=== PATIENT | female | born 1970 | race Caucasian/White ===

== ENCOUNTER 2022-07-18 07:29 | Outpatient (CLI) | payer OTHER, SELFPAY ==
[2022-07-18 07:52] LABS: Basophils Percent Auto 0.4 % (0.2-1.2); Eosinophils Absolute Auto 0.1 K/mm3 (0-0.3); Hematocrit 39.7 % (37.0-47.0); Hemoglobin 13.6 g/dL (12.0-15.0); Immature Granulocyte Absolute 0.01 K/mm3 (0.00-0.031); Immature Granulocyte Percent A 0.2 % (0-0.5); Lymphocytes Absolute Auto 1.29 K/mm3 (0.9-3.2); Lymphocytes Percent Auto 25.7 % (18.3-44.2); Mean Corpuscular HGB Conc 34.3 g/dl (32-36); Mean Corpuscular Hemoglobin 30.4 pg (26-34); Mean Corpuscular Volume 88.6 fl (80-100); Monocytes Absolute Auto 0.5 K/mm3 (0.1-0.6); Neutrophils Absolute Auto 3.2 K/mm3 (1.3-6.7); Neutrophils Percent Auto 62.7 % (45.5-73.1); Platelet Count Result 196 k/mm3 (150-375); Red Blood Count 4.48 M/mm3 (4.2-5.4)
[2022-07-18 08:06] LABS: Alanine Aminotransferase 15 U/L (6-35); Alkaline Phosphatase 41 U/L (38-126); Anion Gap 2 mmol/L (8-16); Aspartate Amino Transferase 21 U/L (14-36); Bilirubin,Total 0.6 mg/dL (0.2-1.3); Blood Urea Nitrogen 11 mg/dL (7-17); Calcium 8.5 mg/dL (8.4-10.2); Carbon Dioxide 27 mmol/L (22-30); Chloride 109 mmol/L (98-107); Cholesterol 138 mg/dL (0-200); Estimated Glomerular Filt Rate > 60; Glucose 89 mg/dL (65-110); HDL Direct 55 mg/dL; Potassium 4.4 mmol/L (3.4-5.0); Sodium 138 mmol/L (137-145); Triglycerides 53 mg/dL (<150)
[2022-07-18 08:17] LABS: LDL Cholesterol Direct 56 mg/dL
[2022-07-18 08:24] LABS: Hemoglobin A1C 4.6 % (<5.7)
== END 2022-07-18 07:30 | disposition home or self-care (01) ==
PROVIDERS: PCP Family Medicine; Visit Provider Physician Assistant
DX: K50.90 Crohn's disease, unspecified, without complications (principal); E66.3 Overweight; Z86.39 Personal history of other endocrine, nutritional and metabolic disease
CPT/HCPCS: 36415; 80053; 80061; 83036; 84443; 85025

== ENCOUNTER 2024-03-29 07:40 | Outpatient (CLI) | payer OTHER, SELFPAY ==
[2024-03-29 08:24] LABS: Basophils Percent Auto 0.9 % (0.2-1.2); Eosinophils Absolute Auto 0.1 K/mm3 (0-0.3); Eosinophils Percent Auto 1.7 % (0-4.4); Hematocrit 38.6 % (37.0-47.0); Hemoglobin 13.2 g/dL (12.0-15.0); Immature Granulocyte Absolute 0.01 K/mm3 (0.00-0.031); Immature Granulocyte Percent A 0.3 % (0-0.5); Lymphocytes Absolute Auto 1.21 K/mm3 (0.9-3.2); Lymphocytes Percent Auto 34.4 % (18.3-44.2); Mean Corpuscular HGB Conc 34.2 g/dl (32-36); Mean Corpuscular Hemoglobin 30.6 pg (26-34); Mean Corpuscular Volume 89.6 fl (80-100); Mean Platelet Volume 10.6 fl (7.4-10.4); Monocytes Absolute Auto 0.3 K/mm3 (0.1-0.6); Monocytes Percent Auto 8.5 % (2.6-8.5); Neutrophils Absolute Auto 1.9 K/mm3 (1.3-6.7); Neutrophils Percent Auto 54.2 % (45.5-73.1); Platelet Count Result 179 k/mm3 (150-375); Red Blood Count 4.31 M/mm3 (4.2-5.4); White Blood Count 3.5 K/mm3 (4.5-10.0)
[2024-03-29 08:32] LABS: Hemoglobin A1C 4.7 % (<5.7)
[2024-03-29 08:34] LABS: Alanine Aminotransferase 13 U/L (6-35); Alkaline Phosphatase 39 U/L (38-126); Anion Gap 6 mmol/L (4-12); Aspartate Amino Transferase 26 U/L (14-36); Bilirubin,Total 0.8 mg/dL (0.2-1.3); Blood Urea Nitrogen 10 mg/dL (7-17); Calcium 8.8 mg/dL (8.4-10.2); Carbon Dioxide 27 mmol/L (22-30); Chloride 104 mmol/L (98-107); Cholesterol 143 mg/dL (0-200); Estimated Glomerular Filt Rate > 60; Glucose 82 mg/dL (65-110); HDL Direct 67 mg/dL; Potassium 3.7 mmol/L (3.4-5.0); Sodium 137 mmol/L (137-145); Triglycerides 39 mg/dL (<150)
[2024-03-29 08:45] LABS: LDL Cholesterol Direct 53 mg/dL
[2024-03-29 09:05] LABS: Thyroid Stimulating Hormone 0.923 uIU/mL (0.465-4.680)
== END 2024-03-29 07:41 | disposition home or self-care (01) ==
PROVIDERS: PCP Family Medicine; Visit Provider Family Medicine
DX: Z00.00 Encounter for general adult medical examination without abnormal findings (principal); E66.3 Overweight
CPT/HCPCS: 36415; 80053; 80061; 83036; 84443; 85025

== ENCOUNTER 2024-12-13 03:08 | Day surgery (SDC) | payer OTHER, SELFPAY ==
[2024-12-03 08:49] VITALS: BMI 23.1
--- NOTE | 2024-12-03 08:49 | SUR.PREOP ---
Report to the Outpatient Waiting Room, entrance under the green pavilion located off [facility], at time 6:00a.m. on date 12/13/2024. Planned Procedure Time: 7:30a.m.? Time changes happen often and if your time is changed the preop area will call you the afternoon before. - You and your visitor will be asked to self-screen and do not enter if you have any COVID symptoms. Please call surgeon if you need to reschedule. - A mask is optional within the hospital at this time. Patients may have clear liquids (water, carbonated beverages, clear teas, apple juice) until 3 hours prior to surgery with a maximum of 20 ounces. - No food from midnight until time of surgery and no smoking, or chewing tobacco (or any form of nicotine). No chewing gum, candy or mints. Take only the following medications with a SIP of water on the morning of surgery: progesterone DO NOT STOP ANY OF YOUR OTHER PRESCRIPTION MEDICATIONS PRIOR TO SURGERY EXCEPT THE FOLLOWING Hold all vitamins and supplements for 3 days per anesthesiologist. Medications to discontinue per physician Afua Date to take last dose 12/03/2024 Please no make-up, nail welsh, hairspray, perfume, deodorant, or body powder the day of surgery.? No jewelry (including any body piercings) or valuables the day of surgery, leave them at home.? Please take a shower or bath the night before, or the morning of, surgery with an antibacterial soap.? Wear comfortable, loose fitting clothing.? Children are encouraged to wear pajamas. - Jewelry must be removed prior to entering the operating room.? Rings and piercings that are not removed may be cut off. - The hospital will not accept responsibility for valuables.? - Please leave all valuables, including medications, at home the day of surgery. If you are going home after surgery, a licensed fork truck driver must drive you home.? - NO public transportation without another adult if you receive anesthesia. - We recommend that an adult stay with you for 24 hours following discharge. - We also recommend that you do not drive, make important decision, drink alcoholic beverages, or take any drugs that were not prescribed by your health care provider for at least 24 hours after your discharge time. Follow any additional instructions given to you from your surgeon. Telephone instructions given to Emma Hinton and asked if any additional questions and then verbalized understanding. Patient advised to call surgeon office or pre surgery nurse liaison [phone] if any additional questions.
--- NOTE | 2024-12-08 08:45 | PM.IMHP ---
H&P: HPI History of Present Illness Date/Time: 12/08/24 08:45 Chief Complaint: Mixed UI Narrative: ON a Beta 3 for OAB. Desires surgical correction of VIRGIL Review of Systems Review of Systems: All systems reviewed & are unremarkable except as noted in HPI and below PMFSH Family History Family History Father Diabetes mellitus Social History Social History Smoking status: Never smoker Alcohol intake: current Drinks per week: 1 Alcohol use details: Rare Substance use type: does not use Lack of Transportation: No Lack of Food: Never True Current Housing: I Have Housing Concerned About Future Housing: No Difficulty Paying Gas/Electric Bills: No Difficulty Paying for Meds: No Currently Unemployed: No Education: Master's Degree or Higher Difficulty w/ Childcare or Family Care: No Living arrangements: with family Spiritual care concerns: No Meds Home Medications and Allergies Home Medications ?Medication ?Instructions ?Recorded ?Confirmed ?Type valacyclovir 1 gram tablet See Rx Instructions PO .COMPLEX 10/23/23 12/03/24 Rx #30 tabs Mounjaro 10 mg/0.5 mL subcutaneous 10 mg (0.5 mL) subcut WEEKLY #2 mL 11/25/24 12/03/24 Rx pen injector (tirzepatide) estradiol 0.05 mg/24 hr semiweekly 1 patch transdermal .twice a week 12/03/24 12/03/24 History transdermal patch progesterone micronized 100 mg 100 mg PO DAILY 12/03/24 12/03/24 History capsule solifenacin 5 mg tablet 5 mg PO DAILY 12/03/24 12/03/24 History Allergies Allergy/AdvReac Type Severity Reaction Status Date / Time Penicillins Allergy Unknown Skin Verified 12/03/24 08:31 Reaction Exam Narrative: + urethral hypermobility Assessment and Plan Assessment and plan (1) VIRGIL (stress urinary incontinence, female): Code(s): N39.3 - Stress incontinence (female) (male) Status: Acute Assessment and Plan: Urethral sling. Risks, bennifits and alternatives outlined in office chart. Still will likely need meds for OAB
--- OUTSIDE RECORDS SUMMARY | 2024-12-13 03:11 | XMS_ITS | Encounter Summary ---
Author Organization Richard Pauer - [facility] Address [address] [place] [address] Care Team Providers Care Gluer And Slicer Hand Name Role Phone Ayse Schmidt MD Primary Care Provider [phone] Encounter Details Date Type Department Care Team (Latest Contact Info) Description 06/02/2005 Outpatient Historical [facility] RUDY Azul, Henry Julio MD [address] [place] [address] REGIONAL ENTERITIS NOS (CMS/HCC) (Primary Dx) Social History Tobacco Use Types Packs/Day Years Used Date Smoking Tobacco: Never Assessed Comments Unknown Sex and Gender Information Value Date Recorded Sex Assigned at Not on file Legal Sex Female 5:10 AM ACCESS REPRESENTATIVE Gender Identity Not on file Sexual Orientation Not on file documented as of this encounter Plan of Treatment Not on file documented as of this encounter Procedures Procedure Name Priority Date/Time Associated Diagnosis Comments CBC WITH DIFFERENTIAL Routine 06/02/2005 4:51 PM ACCESS REPRESENTATIVE CBC WITH DIFFERENTIAL Routine 06/02/2005 4:51 PM ACCESS REPRESENTATIVE C-REACTIVE PROTEIN Routine 06/02/2005 4: 51 PM ACCESS REPRESENTATIVE VITAMIN B12 LEVEL Routine 06/02/2005 4:5 1 PM ACCESS REPRESENTATIVE COMPREHENSIVE METABOLIC PANEL Routine 06/02/2005 4:51 PM ACCESS REPRESENTATIVE documented in this encounter Results * CBC WITH DIFFERENTIAL (06/02/2005 4:51 PM ACCESS REPRESENTATIVE) NEUTROPHILS 66 45 - 70 % INTERFAC E SYSTEM LYMPHOCYTES 28 16 - 45 % INTERFAC E SYSTEM MONOCYTES 5 3 - 13 % INTERFACE SYSTEM EOSINOPHILS 2 0 - 7 % INTERFAC E SYSTEM BASOPHILS 0 0 - 2 % INTERFACE SYSTEM NEUTROPHIL ABSOLUTE 4.16 1.90 - 7.00 K/uL INTERFACE SYSTEM LYMPHOCYTE ABSOLUTE 1.76 0.70 - 4.50 K/uL INTERFACE SYSTEM MONOCYTE ABSOLUTE 0.29 0.10 - 1.30 K/uL INTERFACE SYSTEM EOSINOPHIL ABSOLUTE 0.11 0.00 - 0.70 K/uL INTERFACE SYSTEM BASOPHILS ABSOLUTE 0.02 0.00 - 0.20 K/uL INTERFACE SYSTEM 06/02/2005 4:51 PM ACCESS REPRESENTATIVE Henry Azul MD HEMATOLOGY ORDERABLES F inal Result Performing Organization Address [facility] de Phone Number INTERFACE SYSTEM Refer to clinic/hospital department * CBC WITH DIFFERENTIAL (06/02/2005 4:51 PM ACCESS REPRESENTATIVE) Pathologist [facility] WBC 6.3 4.0 - 9.8 K/uL INTERFACE SYSTEM RBC 4.48 3.90 - 4.90 M/uL INTERFACE SYSTEM HEMOGLOBIN 13.3 11.8 - 14.8 g/dL INTERFACE SYSTEM HEMATOCRIT 39.2 35.5 - 44.0 % INTERFACE SYSTEM MCV 87.5 82.0 - 99.0 fL INTERFACE SYSTEM MCH 29.7 27.2 - 32.6 pg INTERFACE SYSTEM MCHC 33.9 31.5 - 35.5 % INTERFACE SYSTEM RDW 12.9 11.5 - 14.5 % INTERFACE SYSTEM RDW-STDEV 41.7 37.1 - 48.7 fL INTERFACE SYSTEM PLATELETS 208 140 - 350 K/uL INTERFACE SYSTEM MPV 11.1 9.3 - 12.4 fL INTERFACE SYSTEM 06/02/2005 4:51 PM ACCESS REPRESENTATIVE Henry Azul MD HEMATOLOGY ORDERABLES F inal Result Performing Organization Address [facility] Co de Phone Number INTERFACE SYSTEM Refer to clinic/hospital department * VITAMIN B12 (06/02/2005 4:51 PM ACCESS REPRESENTATIVE) Pathologist [facility] VITAMIN B12 360 243 - 894 pg/mL INTERFACE SYSTEM Comment: It has been reported that between 5 to 10% of patients with values between 200 and 400 pg/mL may experience neuropsychiatric and hematologic abnormalities due to occult B12 deficiency. Less than 1% of patients with values above 400 pg/mL will have symptoms. 06/02/2005 4:51 PM ACCESS REPRESENTATIVE Henry Azul MD CHEMISTRY ORDERABLES Fi nal Result Performing Organization Address [facility] Phone Number INTERFACE SYSTEM Refer to clinic/hospital department * C-REACTIVE PROTEIN (06/02/2005 4:51 PM ACCESS REPRESENTATIVE) CRP <0.5 0.0 - 0.8 mg/dL INTERFACE SYSTEM 06/02/2005 4:51 PM ACCESS REPRESENTATIVE Henry Azul MD CHEMISTRY ORDERABLES Fi nal Result Performing Organization Address [facility] Phone Number INTERFACE SYSTEM Refer to clinic/hospital department * COMPREHENSIVE METABOLIC PANEL (06/02/2005 4:51 PM ACCESS REPRESENTATIVE) GLUCOSE 87 65 - 109 mg/dL INTERFACE SYSTEM CREATININE 0.9 0.4 - 1.2 mg/dL INTERFACE SYSTEM CALCIUM 9.0 8.6 - 10.2 mg/dL INTERFACE SYSTEM AST 22 12 - 32 U/L INTERFACE SYSTEM ALKALINE PHOSPHATASE 55 35 - 104 U/L INTERFACE SYSTEM BILIRUBIN TOTAL 0.5 0.2 - 1.0 mg/dL INTERFACE SYSTEM ALBUMIN 4.4 3.4 - 4.8 g/dL INTERFACE SYSTEM TOTAL PROTEIN 7.4 6.3 - 8.6 g/dL INTERFACE SYSTEM ALT 22 0 - 31 U/L INTERFACE SYSTEM BUN 13 6 - 20 mg/dL INTERFACE SYSTEM SODIUM 141 135 - 145 mmol/L INTERFACE SYSTEM POTASSIUM 3.9 3.5 - 4.9 mmol/L INTERFACE SYSTEM CHLORIDE 108 96 - 108 mmol/L INTERFACE SYSTEM CO2 24 22 - 30 mmol/L INTERFACE SYSTEM 06/02/2005 4:51 PM ACCESS REPRESENTATIVE Henry Azul MD CHEMISTRY ORDERABLES Fi nal Result Performing Organization Address [facility] Phone Number INTERFACE SYSTEM Refer to clinic/hospital department documented in this encounter Visit Diagnoses Diagnosis Regional enteritis of unspecified site (CMS/HCC)- Primary Regional enteritis of unspecified site documented in this encounter Care Teams Gluer And Slicer Hand Relationship Specialty Start Date End Date Ayse Schmidt MD PCP - General Family Practice 09/22/15 documented as of this encounter
--- OUTSIDE RECORDS SUMMARY | 2024-12-13 03:11 | XMS_ITS | Clinical Summary ---
Author Organization [address] Address [address] [place] [address] Care Team Providers Care Interpreter Translator Name Role Phone Ayse Schmidt MD Primary Care Provider + Angel Nelson MD Unavailable [phone] Allergies Active Allergy Reactions Criticality Noted Date Comments Penicillin G Rash Medium 06/19/2009 Medications No known medications Active Problems No known active problems Social History Tobacco Use Types Packs/Day Years Used Date Smoking Tobacco: Never Smokeless Tobacco: Never Personal Safety Answer Date Recorded Getting School Help Needed Not on file 07/22 Comments Unknown Sex and Gender Information Value Date Recorded Sex Assigned at Not on file Legal Sex Female 11:31 AM CDT Gender Identity Not on file Sexual Orientation Not on file Obstetrics History Last Filed Vital Signs Vital Sign Reading Time Taken Comments Blood Pressure - - Pulse - - Temperature 36.2 C (97.1 F) 02/21/2020 10:47 AM CDT Respiratory Rate - - Oxygen Saturation - - Inhaled Oxygen Concentration - - Weight 90.7 kg (200 lb) 02/21/2020 10:47 AM CDT Height 165.1 cm (5' 5) 02/21/2020 10:47 AM CDT Body Mass Index 33.28 02/21/2020 10:47 AM CDT Plan of Treatment Not on file Insurance [employer] SIG [id number] Care Teams Interpreter Translator Relationship Specialty Start Date End Date Ayse Schmidt MD PCP - General Family Medicine 02/18/20 Angel Nelson MD [address] [address] Surgeon Orthopedic Surgery 02/19/20
--- OUTSIDE RECORDS SUMMARY | 2024-12-13 03:11 | XMS_ITS | Encounter Summary ---
Author Organization [facility] Address [address] [place] [address] Care Team Providers Care Rougher Merchant Mill Name Role Phone Ayse Schmidt MD Primary Care Provider [phone] Encounter Details Date Type Department Care Team (Latest Contact Info) Description 09/03/2007 Outpatient Historical [facility] Friedman, Henry Nunez MD [address] [place] [address] Other Screening Mammogram Social History Tobacco Use Types Packs/Day Years Used Date Smoking Tobacco: Never Assessed Comments Unknown Sex and Gender Information Value Date Recorded Sex Assigned at Not on file Legal Sex Female 5:10 AM BINDERY TECHNICIAN Gender Identity Not on file Sexual Orientation Not on file documented as of this encounter Plan of Treatment Not on file documented as of this encounter Procedures Procedure Name Priority Date/Time Associated Diagnosis Comments MAMMO SCREEN BILAT W OR WO CAD Routine 09/03/2007 1:23 PM CDT documented in this encounter Results * MAMMO DIGITAL SCREEN BILAT (09/03/2007 1:23 PM CDT) Anatomical Region Laterality Modality Breast Bilateral Other 09/03/2007 1:23 PM CDT Narrative 09/05/2007 8:42 AM CDT [address] [address] Admit Date: 09/03/2007 VENICE RODRIGUEZ Sex: F Admit Prov: HENRY FRIEDMAN Date: 1970 Primary Care Prov: CMRN: [id number] Room: [facility] N: [id number] IMAGING SERVICES Ordering Prov: HENRY FRIEDMAN Accession Number: [id number] Interpretation BILATERAL FULL FIELD DIGITAL SCREENING MAMMOGRAM WITH CAD. Date: 09/03/2007 History: Routine Screening. Technique: Full field digital craniocaudal and mediolateral oblique projections of both breasts were obtained. Computer aided diagnosis was performed. Comparison: No prior studies are available for comparison. Breast Parenchymal Composition: Scattered fibroglandular densities. Findings: No suspicious mass, suspicious microcalcifications, or architectural distortion in either breast is identified. The computer aided detection detects no significant abnormality. Overall Assessment: BI-RADS category 1: Negative. Recommendation: Annual mammography is recommended. Assessment BIRADS: 1-Negative Recommendation: Normal interval follow-up Dictated by: IMANI CRUZ Electronically signed by: IMANI CRUZ 09/05/2007 08:42 Transcribed: 09/04/2007 23:41 AMK Procedure Note Imani Cruz - 09/05/2007 [facility] [address] [place], [place] [address] Admit Date: 09/03/2007 VENICE RODRIGUEZ Sex: F Admit Prov: HENRY FRIEDMAN Date: 1970 Primary Care Prov: CMRN: [id number] Room: [facility] N: [id number] IMAGING SERVICES Ordering Prov: HENRY FRIEDMAN Interpretation BILATERAL FULL FIELD DIGITAL SCREENING MAMMOGRAM WITH CAD. Date: 09/03/2007 History: Routine Screening. Technique: Full field digital craniocaudal and mediolateral oblique projections of both breasts were obtained. Computer aided diagnosiswas performed. Comparison: No prior studies are available for comparison. Breast Parenchymal Composition: Scattered fibroglandulardensities. Findings: No suspicious mass, suspicious microcalcifications, or architectural distortion in either breast is identified. The computeraided detection detects no significant abnormality. Overall Assessment: BI-RADS category 1: Negative. Recommendation: Annual mammography is recommended. Assessment BIRADS: 1-Negative Recommendation: Normal interval follow-up Dictated by: IMANI CRUZ Electronically signed by: IMANI CRUZ 09/05/2007 08:42 Transcribed: 09/04/2007 23:41 AMK us Henry Friedman MD MAMMO ORDERABLES Final Resul t documented in this encounter Visit Diagnoses Diagnosis Other screening mammogram documented in this encounter Care Teams Rougher Merchant Mill Relationship Specialty Start Date End Date Ayse Schmidt MD PCP - General Family Practice 09/22/15 documented as of this encounter
--- OUTSIDE RECORDS SUMMARY | 2024-12-13 03:11 | XMS_ITS | Encounter Summary ---
Author Organization [employer] Address [address] [place] [address] Care Team Providers Care Project Mgr Name Role Phone Ayse Schmidt MD Primary Care Provider [phone] Encounter Details Date Type Department Care Team (Latest Contact Info) Description 03/07/2006 Inpatient Historical [facility] Henry Friedman MD [address] [place] [address] Abnormality in Heart Rate/Rhythm, Delivered (Primary Dx) Social History Tobacco Use Types Packs/Day Years Used Date Smoking Tobacco: Never Assessed Comments Unknown Sex and Gender Information Value Date Recorded Sex Assigned at Not on file Legal Sex Female 5:10 AM REMOTE SENSING ADVISOR Gender Identity Not on file Sexual Orientation Not on file documented as of this encounter Plan of Treatment Not on file documented as of this encounter Procedures Procedure Name Priority Date/Time Associated Diagnosis Comments CBC WITH DIFFERENTIAL Routine 03/08/2006 2:25 AM REMOTE SENSING ADVISOR CBC WITH DIFFERENTIAL Routine 03/08/2006 2:25 AM REMOTE SENSING ADVISOR documented in this encounter Results * (ABNORMAL) CBC WITH DIFFERENTIAL (03/08/2006 2:25 AM REMOTE SENSING ADVISOR) NEUTROPHILS 77(H) 45 - 70 % INTERFAC E SYSTEM LYMPHOCYTES 17 16 - 45 % INTERFAC E SYSTEM MONOCYTES 6 3 - 13 % INTERFACE SYSTEM EOSINOPHILS 0 0 - 7 % INTERFAC E SYSTEM BASOPHILS 0 0 - 2 % INTERFACE SYSTEM NEUTROPHIL ABSOLUTE 8.31(H) 1.90 - 7.00 K/uL INTERFACE SYSTEM LYMPHOCYTE ABSOLUTE 1.80 0.70 - 4.50 K/uL INTERFACE SYSTEM MONOCYTE ABSOLUTE 0.67 0.10 - 1.30 K/uL INTERFACE SYSTEM EOSINOPHIL ABSOLUTE 0.04 0.00 - 0.70 K/uL INTERFACE SYSTEM BASOPHILS ABSOLUTE 0.01 0.00 - 0.20 K/uL INTERFACE SYSTEM 03/08/2006 2:25 AM REMOTE SENSING ADVISOR us Henry Friedman MD HEMATOLOGY ORDERABLES Final Result INTERFACE SYSTEM Refer to clinic/hospital department * (ABNORMAL) CBC WITH DIFFERENTIAL (03/08/2006 2:25 AM REMOTE SENSING ADVISOR) WBC 10.8(H) 4.0 - 9.8 K/uL INTERFACE SYSTEM RBC 3.94 3.90 - 4.90 M/uL INTERFACE SYSTEM HEMOGLOBIN 11.7(L) 11.8 - 14.8 g/dL INTERFACE SYSTEM HEMATOCRIT 34.0(L) 35.5 - 44.0 % INTERFACE SYSTEM MCV 86.3 82.0 - 99.0 fL INTERFACE SYSTEM MCH 29.7 27.2 - 32.6 pg INTERFACE SYSTEM MCHC 34.4 31.5 - 35.5 % INTERFACE SYSTEM RDW 13.5 11.5 - 14.5 % INTERFACE SYSTEM RDW-STDEV 43.3 37.1 - 48.7 fL INTERFACE SYSTEM PLATELETS 129(L) 140 - 350 K/uL INTERFACE SYSTEM MPV 11.7 9.3 - 12.4 fL INTERFACE SYSTEM 03/08/2006 2:25 AM REMOTE SENSING ADVISOR us Henry Friedman MD HEMATOLOGY ORDERABLES Final Result INTERFACE SYSTEM Refer to clinic/hospital department documented in this encounter Visit Diagnoses Diagnosis Abnormality in heart rate/rhythm, delivered, with or without mention of antepartum condition- Primary documented in this encounter Care Teams Project Mgr Relationship Specialty Start Date End Date Ayse Schmidt MD PCP - General Family Practice 09/22/15 documented as of this encounter
--- OUTSIDE RECORDS SUMMARY | 2024-12-13 03:11 | XMS_ITS | Encounter Summary ---
Author Organization [facility] Address [address] [place] [address] Care Team Providers Care Field Insurance Sales Manager Name Role Phone Ayse Schmidt MD Primary Care Provider [phone] Encounter Details Date Type Department Care Team (Latest Contact Info) Description 02/06/2008 Outpatient Historical [facility] Henry Carey MD [address] [place] [address] Regional Enteritis of Unspecified Site (CMS/HCC) Social History Tobacco Use Types Packs/Day Years Used Date Smoking Tobacco: Never Assessed Comments Unknown Sex and Gender Information Value Date Recorded Sex Assigned at Not on file Legal Sex Female 5:10 AM ROOFER ASSISTANT Gender Identity Not on file Sexual Orientation Not on file documented as of this encounter Plan of Treatment Not on file documented as of this encounter Procedures Procedure Name Priority Date/Time Associated Diagnosis Comments CT ABDOMEN PELVIS W CONTRAST Timed Study 02/06/2008 9:28 AM CDT HCG QUALITATIVE, URINE Routine 02/06/2008 8:04 AM CDT documented in this encounter Results * CT ABDOMEN PELVIS W CONTRAST (02/06/2008 9:28 AM CDT) Anatomical Region Laterality Modality Abdomen Other 02/06/2008 9:28 AM CDT Narrative 02/06/2008 10:34 AM CDT [facility] [address] [place], [place] [address] Admit Date: 02/06/2008 VENICE RODRIGUEZ Sex: F Admit Prov: HENRY CAREY Date: 1970 Primary Care Prov: CMRN: [id number] [id number] IM[facility]ING SERVICES Ordering Prov: N/A Accession Number: [id number] Interpretation Exam: CT of the abdomen and pelvis. History: Pain, history of Crohn's. Scans were performed during the intravenous injection of 125 cc Optiray- 320. The liver is free of distinct solid masses or evidence of hepatocellular disease. No abnormalities of bile ducts are seen. The gallbladder is normal. The spleen is unremarkable. No pancreatic masses cyst or inflammation are identified. No renal cyst are seen. No renal stones are seen. No renal masses or obstruction is seen. The ureters descend without evidence of obstruction or displacement. The urinary bladder is grossly normal. No pelvic masses, cysts or abnormal fluid collections are seen. No periaortic or pelvic adenopathy is seen. A normal appendix is not identified but no right lower quadrant inflammatory changes are seen. No abnormalities of bowel loop and mesentery are identified. Conclusion: No convincing radiographic evidence of acute or active intra- abdominal or pelvic disease. . Dictated by: JJ BELTRE 02/06/2008 10:28 Electronically signed by: JJ BELTRE 02/06/2008 10:32 Procedure Note Jj Beltre MD - 02/06/[address] [address] Admit Date: 02/06/2008 RODRIGUEZVENICE DUGAN Aleyda Sex: F Admit Prov: HENRY CAREY Date: 1970 Primary Care Prov: CMRN: [id number] [facility] [id number] IMAGING SERVICES Ordering Prov: N/A Interpretation Exam: CT of the abdomen and pelvis. History: Pain, history of Crohn's. Scans were performed during the intravenous injection of 125 ccOptiray- 320. The liver is free of distinct solid masses or evidence of hepatocellular disease. No abnormalities of bile ducts are seen.The gallbladder is normal. The spleen is unremarkable. No pancreaticmasses cyst or inflammation are identified. No renal cyst are seen. Norenal stones are seen. No renal masses or obstruction is seen. Theureters descend without evidence of obstruction or displacement. Theurinary bladder is grossly normal. No pelvic masses, cysts or abnormalfluid collections are seen. No periaortic or pelvic adenopathy is seen. Anormal appendix is not identified but no right lower quadrant inflammatorychanges are seen. No abnormalities of bowel loop and mesentery areidentified. Conclusion: No convincing radiographic evidence of acute or activeintra- abdominal or pelvic disease. . Dictated by: JJ BELTRE 02/06/2008 10:28 Electronically signed by: JJ BELTRE 02/06/2008 10:[address] ORDERABLES Final R esult * HCG QUALITATIVE, URINE (02/06/2008 8:04 AM CDT) SPECIFIC GRAVITY UA 1.025 1.001 - 1.035 [facility] HCG QUAL URINE Negative Negative [facility] Urine specimen (specimen) 02/06/2008 8:04 AM CDT 02/06/2008 8:15 AM CDT Henry Carey MD URINE ORDERABLES Final Result INTERFACE SYSTEM Refer to clinic/hospital department [facility] CLIA# [id number] [address] [place] [address] documented in this encounter Visit Diagnoses Diagnosis Regional enteritis of unspecified site (CMS/HCC) Regional enteritis of unspecified site documented in this encounter Care Teams Field Insurance Sales Manager Relationship Specialty Start Date End Date Ayse Schmidt MD PCP - General Family Practice 09/22/15 documented as of this encounter
--- OUTSIDE RECORDS SUMMARY | 2024-12-13 03:11 | XMS_ITS | Encounter Summary ---
Author Organization [facility] Address [address] [place] [address] Care Team Providers Care Sweet Pickle Maker Name Role Phone Ayse Schmidt MD Primary Care Provider [phone] Encounter Details Date Type Department Care Team (Late st Contact Info) Description 09/26/2019 Abstract [facility] Operating Room [address] [id number] Luis Tomas MD [address] [place] [address] Social History Tobacco Use Types Packs/Day Years Used Date Smoking Tobacco: Never Alcohol Use Standard Drinks/Week Comments Yes 0 (1 standard drink = 0.6 oz pur e alcohol) social Comments Unknown Sex and Gender Information Value Date Recorded Sex Assigned at Not on file Legal Sex Female 5:10 AM WOOL SAMPLER Gender Identity Not on file Sexual Orientation Not on file Occupation Industry Job Start Date Job End Date Not on file Not on file Not on file Not on file documented as of this encounter Plan of Treatment Not on file documented as of this encounter Visit Diagnoses Not on filedocumented in this encounter Care Teams Sweet Pickle Maker Relationship Specialty Start Date End Date Ayse Schmidt MD PCP - General Family Practice 09/22/15 documented as of this encounter
--- OUTSIDE RECORDS SUMMARY | 2024-12-13 03:11 | XMS_ITS ---
Author Organization Unknown ENCOUNTERS Encounter Performer Location Date Diagnosis Diagnosis Status Outpatient [facility]se [facility] [address] [place] [address] [id number] [place]BI[place] Outpatient [facility] [address] [place] [address] [id number] [place] *Note: Encounters from your own facility or health system may be excluded. Allergies, Adverse Reactions, Alerts Allergen Type Severity Identification Date Penicillins drug allergy 3 [id number] Medications Name Date Quantity Days Supplied GPI Number
--- OUTSIDE RECORDS SUMMARY | 2024-12-13 03:11 | XMS_ITS | Clinical Summary ---
Author Organization [facility] Address [address] [place] [address] Phone Care Team Providers Care Inner Tube Cutter Name Role Phone Ayse Schmidt MD Primary Care Provider Allergies Active Allergy Reactions Criticality Noted Date Comments Penicillin G Rash Low 06/19/2009 Medications valACYclovir (VALTREX) 1 gram tablet TAKE 2 TABLETS BY MOUTH AT ONSET OF SYMPTOMS THEN 2 TABLETS EVERY 12 HOURS FOR 1 DAY 1 Active Mounjaro 10 mg/0.5 mL Pen Injector INJECT 10MG SUBCUTANEOUSLY ONCE WEEKLY 4 Active estradioL (Vivelle-Dot) 0.05 mg/24 hr patch Apply 1 Patch to skin as directed twice weekly. 24 Patch 3 5 Active progesterone micronized (Prometrium) 100 mg Capsule Take 1 Capsule (100 mg) by mouth daily. 90 Capsule 3 5 Active Active Problems No known active problems Encounters Date Type Department Care Team Description 12/10/2024 External Device Data STL ABSTRACTION Provider, Abstract 11/20/2024 External Device Data ST[facility] ABSTRACTION Provider, Abstract 11/19/2024 External Device Data [facility] ABSTRACTION Provider, Abstract 10/22/2024 External Device Data ST[place] ABSTRACTION Provider, Abstract 09/26/2024 External Device Data ST[facility] ABSTRACTION Provider, Abstract 09/25/2024 External Device Data ST[place] ABSTRACTION Provider, Abstract 09/24/2024 External Device Data STL ABSTRACTION Provider, Abstract from Last 3 Months Immunizations Immunization Administration Dates Next Due INFLUENZA VACCINE QUADRIVALENT 6 MOS UP IM 03/16 Family History Medical History Relation Name Comments Diabetes Father Ovarian Cancer Maternal Aunt 30's Other Mother Breast Cancer Neg Hx Relation Name Status Comments Brother Alive Father Alive Maternal Aunt Mother Alive Social History Tobacco Use Types Packs/Day Years Used Date Smoking Tobacco: Never Smokeless Tobacco: Never Tobacco Cessation:Counseling Given: No Alcohol Use Standard Drinks/Week Comments Yes 0 (1 standard drink = 0.6 oz pur e alcohol) social Comments No Sex and Gender Information Value Date Recorded Sex Assigned at Not on file Legal Sex Female 5:10 AM SUPERVISOR PIPELINE Gender Identity Not on file Sexual Orientation Not on file Occupation Industry Job Start Date Job End Date Not on file Not on file Not on file Not on file Last Filed Vital Signs Vital Sign Reading Time Taken Comments Blood Pressure 112/74 05/23/2024 10:55 AM SUPERVISOR PIPELINE Pulse 74 06/23/2009 9:35 AM SUPERVISOR PIPELINE Temperature 36.9 C (98.4 F) 06/23/2009 9:20 AM SUPERVISOR PIPELINE Respiratory Rate 18 06/23/2009 9:35 AM SUPERVISOR PIPELINE Oxygen Saturation 100% 06/23/2009 9:35 AM SUPERVISOR PIPELINE Inhaled Oxygen Concentration - - Weight 65.3 kg (144 lb) 05/23/2024 10:55 AM SUPERVISOR PIPELINE Height 165.1 cm (5' 5) 05/23/2024 10:55 AM SUPERVISOR PIPELINE Body Mass Index 23.96 05/23/2024 10:55 AM SUPERVISOR PIPELINE Plan of Treatment Health Maintenance Due Date Last Done Comments DTAP/TDAP/TD VACCINES (1 - Tdap) 1990 HEPATITIS B VACCINES (1 of 3 - 19+ 3-dose series) 1990 FIT-DNA Q 3 years 2016 FIT/FOBT Q 1 year 2016 Flex Sig/CT Colonography Q 5 years 2016 ZOSTER VACCINE (1 of 2) 2021 INFLUENZA VACCINE (#1) 2024 03/16/2020 BREAST CANCER SCREENING 06/13/2025 06/13/19, 06/26/2023, 06/17/2020, Additional history exists COLORECTAL SCREENING 09/28/2025 09/29/2015, 06/23/19 10 Colorectal Cancer Screening 09/28/2025 PAP SMEAR 05/23/2027 05/23/2024, 05/0 05/2022, 04/08/2021, Additional history exists CERVICAL CANCER SCREENING 05/23/2029 HPV/Cotest (21-29) 05/23/2029 05/23/2024, 0 09/05/2022, 04/08/2021, Additional history exists HPV/Cotest (30-65) 05/23/2029 05/23/2024, 0 09/05/2022, 04/08/2021, Additional history exists Procedures Procedure Name Priority Date/Time Associated Diagnosis Comments MAMMO 3D HYUN SCREEN BILAT W OR WO CAD Routine 06/13/2024 10:49 AM SUPERVISOR PIPELINE Breast cancer screening by mammogram CERV/VAG CYTO AGE BASED SCREEN PAP Routine 05/23/2024 1:48 PM SUPERVISOR PIPELINE Screening for malignant neoplasm of cervix from Last 3 Months or Most Recently Relevant to Health Maintenance Results * MAMMO 3D HYUN SCREEN BILAT W OR WO CAD (06/13/2024 10:49 AM SUPERVISOR PIPELINE) Anatomical Region Laterality Modality Breast Bilateral Mammography 06/13/2024 10:4 9 AM SUPERVISOR PIPELINE Impressions 06/13/2024 1:14 PM SUPERVISOR PIPELINE IMPRESSION: Negative bilateral screening mammogram. Recommend routine followup. OVERALL FINAL ASSESSMENT: BI-RADS CATEGORY 1: Negative. DICTATION LOCATION: [facility] 06/13/2024 1:14 PM SUPERVISOR PIPELINE BILATERAL SCREENING DIGITAL MAMMOGRAM WITH 3D TOMOSYNTHESIS AND CAD DATE: 06/13/2024 10:49 AM HISTORY: Annual screening study. COMPARISON: 06/26/2023, 10/17/2017. TECHNIQUE: A bilateral screening mammogram was performed. Low-dose full-field digital breast tomosynthesis examination was performed with 2D and 3D acquisitions. Examination is read in conjunction with computer aided detection. BREAST COMPOSITION: Heterogeneously dense, which limits the sensitivity of mammography. FINDINGS: No new masses, suspicious calcifications, or areas of asymmetry or distortion are identified. The images were reviewed using the CAD system. us Henry Friedman MD MAMMO ORDERABLES Final Resul t * CERV/VAG CYTO AGE BASED SCREEN PAP (05/23/2024 1:48 PM SUPERVISOR PIPELINE) COMMENT (PAP): [facility] Comment: This order for age-based cervical cancer and STI screening follows ACOG guidelines(PB 168, 140, HTL410). See individual assays for performing site location. CLINICAL INFORMATION [facility] Comment:None given LAST MENSTRUAL PERIOD [facility] Comment:12/03/2023 PREV PAP: [facility] Comment:NONE GIVEN PREV BX: [facility] Comment:NONE GIVEN SOURCE [facility] Comment:Endocervix ADEQUACY: [facility] Comment: Satisfactory for evaluation. Endocervical/transformation zone component present. PAP INTERP [facility] Comment: Cytology Results: Negative for intraepithelial lesion or malignancy. COMMENT (PAP TEST) [facility] Comment: This Pap test has been evaluated with computer assisted technology. WEIGHT CONTROL LECTURER: [facility] Comment: YQ, CT(ASCP) CT screening location: [place] [address] [place] [address] EXPLANATORY NOTE [facility] Comment: EXPLANATORY NOTE: The Pap is a screening test for cervical cancer. It is not a diagnostic test and is subject to false negative and false positive results. It is most reliable when a satisfactory sample, regularly obtained, is submitted with relevant clinical findings and history, and when the Pap result is evaluated along with historic and current clinical information. HPV E6/E7 Not Detected Not Detected [facility] Comment: Methodology: Patent Prosecution Paralegal-Mediated Amplification This assay detects E6/E7 viral messenger RNA (mRNA) from 14 high-risk HPV types (16,18,31,33,35,39,45,51,52,56,58,59,66,68). Cervical sources are required for HPV testing. If a vaginal source from a patient who has had a total hysterectomy with removal of cervix was submitted, please contact the testing laboratory for alternative testing options. For additional information, please refer to http://education.[employer]/faq/VAT888k0 (This link if provided for information/ educational purposes only.) Test Performed at: [facility] [address] [place] [address] [facility] Genital SWAB OF ENDOCERVIX / Unknown 05/23/2024 1:48 PM SUPERVISOR PIPELINE 05/24/2024 3:23 AM SUPERVISOR PIPELINE Henry Friedman MD PATHOLOGY/CYTOLOGY ORDERABLE S Final Result [facility] [phone] [facility] [address] [place] [address] from Last 3 Months or Most Recently Relevant to Health Maintenance Insurance [facility] [employer] [id number] [employer] Address: [place] [id number] [place] [address] RX [facility] [employer] Advance Directives For more information, please contact: [phone] * Full Code (Latest Code Status on File) Date Activated Date Inactivated Comments 06/23/2009 7:50 AM 06/24/2009 2:02 AM Care Teams Inner Tube Cutter Relationship Specialty Start Date End Date Ayse Schmidt MD PCP - General Family Practice 09/22/15
[2024-12-13 06:30] VITALS: BP 107/64; PULSE 66; RESP 16; TEMP 36.6; O2SAT 100
[2024-12-13] MEDS: LACTATED RINGERS 1,000 ML 30 ML IV CONT ×2 (06:30→08:23)
--- NOTE | 2024-12-13 07:09 | P.PNAN_ITS ---
Anes - Initial Pre Proc Eval Procedure: Operation Date: 12/13/24 07:30 Proposed Procedures p Urethral Sling - Rodrick Quach MD Date/Time: 12/13/24 07:09 Surgeon: Rodrick Quach MD Pre Op Diagnosis: stress incont Patient Data Age: 54 Gender: F Height: 1.65 m Weight: 63 kg Allergies Allergy/AdvReac Type Severity Reaction Status Date / Time Penicillins Allergy Unknown Skin Verified 12/03/24 08:31 Reaction Home Medications ?Medication ?Instructions ?Recorded ?Confirmed ?Type valacyclovir 1 gram tablet See Rx Instructions PO .COMPLEX 10/23/23 12/03/24 Rx #30 tabs Mounjaro 10 mg/0.5 mL subcutaneous 10 mg (0.5 mL) subcut WEEKLY #2 mL 11/25/24 12/03/24 Rx pen injector (tirzepatide) estradiol 0.05 mg/24 hr semiweekly 1 patch transdermal .twice a week 12/03/24 12/03/24 History transdermal patch progesterone micronized 100 mg 100 mg PO DAILY 12/03/24 12/03/24 History capsule solifenacin 5 mg tablet 5 mg PO DAILY 12/03/24 12/03/24 History Patient hx anesthesia problems: none Family hx anesthesia problems: none Results Review: All pre-operative results and documents have been reviewed as part of the pre- operative evaluation. [facility] Past Medical History Medical History (Updated 12/13/24 @ 07:10 by Ag Martini DO) Crohn's disease Family History Family History Father Diabetes mellitus Social History Social History Smoking status: Never smoker Alcohol intake: current Substance use type: does not use Lack of Transportation: No Lack of Food: Never True Current Housing: I Have Housing Concerned About Future Housing: No Difficulty Paying Gas/Electric Bills: No Difficulty Paying for Meds: No Currently Unemployed: No Education: Master's Degree or Higher Difficulty w/ Childcare or Family Care: No Anes - Eval Final PreProcedure Day of Procedure 12/13/24 07:09 Patient weight: normal Heart: regular rate and rhythm Lungs: clear to auscultation and normal air movement Airway: Mallampati scale class 1 Neurological: alert and oriented Last oral intake: >/= 8 hours ASA classification: II Emergent: no Anesthetic plan: proceed Anesthesia type and monitoring: general GIVS and standard monitoring Results Review: All pre-operative results and documents have been reviewed as part of the pre- operative evaluation. Informed Consent: The patient's anesthetic plan and its attendant risks and benefits were discussed with the patient/family/POA. Questions were solicited and answers provided to the satisfaction of the patient/family/POA.
--- NOTE | 2024-12-13 07:15 | WPDHPUPDATE1 ---
History and Physical Update Update Date/Time: 12/13/24 07:15 History and Physical has been reviewed, including an updated exam of the patient. There are NO changes in the patient's condition. Risks, benefits, and alternatives have been discussed and questions answered. Patient agrees to proceed with procedure.
[2024-12-13] MEDS: ceFAZolin 2 GM in SODIUM CHLORIDE 0.9% IV 50 ML 100 ML IVPB (07:27)
[2024-12-13] MEDS: BUPIVACAINE/EPINEPHRINE 0.5% 50 ML VIAL 10 ML INFILTRATE (07:51)
[2024-12-13 08:09] VITALS: BP 80/48; PULSE 56; RESP 10; O2SAT 96
--- NOTE | 2024-12-13 08:19 | W.PM.PROC2 ---
Procedure Note - Detailed Date of Procedure 12/13/24 Pre-op Diagnosis stress incont Post-op Diagnosis Same Procedure Performed mid urethral sling cystoscopy Surgeon Rodrick Quach MD Anesthesia MAC and Local Indications This is a female with confirm stress urinary incontinence. She desires surgical correction. She understands the risks of bleeding, infection, injury to the urinary tract, vaginal mesh extrusion, urinary tract mesh erosion, obstructive voiding requiring a secondary procedure, hip and leg pain, dyspareunia, inability to improve overactive bladder symptoms. She agrees to proceed. She is on a beta 3 agonist for overactive bladder. She understands the treatment of stress incontinence will not help her overactive bladder symptoms Findings Uncomplicated procedure Description of Procedure She was correctly identified. Informed consent obtained. She was brought the operating room. She was given appropriate anesthesia. She was given appropriate perioperative antibiotics. A time-out performed. I marked out the site of the inner thigh incisions. I anesthetized the skin and made those incisions. I anesthetized the anterior vaginal wall over the mid urethra. I made a 1 cm incision. I dissected out laterally taking great care not to injure the refilled vaginal wall. I passed the helical trocars. First on the left. Then on the right. I did this from the thigh incision towards the vaginal incision. The sling was connected to the trocars and brought out through the thigh incision. I tensioned the sling appropriately. I cut and the plastic sheaths. I then closed the incision with 2 0 Vicryl. On cystoscopy there is no tumors or surgical artifact. There was no surgical artifact in the urethra. I adjusted the sling to there was no leakage on Crede a maneuver. Palpation revealed no palpable mesh in the sulcus or in the mid urethra I cut the excess sling material. Close incisions with glue. She was awakened and transferred to the PACU in stable condition. Implants Urethral sling Estimated Blood Loss 40 Drains No Packing No Pathology None sent Complications No immediate complications Condition Stable Disposition PACU
[2024-12-13 08:40] VITALS: BP 83/49; PULSE 52; RESP 16; O2SAT 99
[2024-12-13 09:07] VITALS: BP 90/62; PULSE 59; RESP 16
== END 2024-12-13 09:12 | disposition home or self-care (01) ==
PROVIDERS: PCP Family Medicine; Visit Provider Urology
PROC: (CPT 57288; principal; 2024-12-13 07:30)
DX: N39.3 Stress incontinence (female) (male) (principal); K50.90 Crohn's disease, unspecified, without complications; Z79.85 Long-term (current) use of injectable non-insulin antidiabetic drugs
CPT/HCPCS: 57288; J0690; C1771; J1885; J2003; J2250; J2704; J3010; J7030; J7120